=== PATIENT | female | born 1970 | race Caucasian/White ===

== ENCOUNTER → 2017-10-06 | Outpatient (REF) | payer OTHER | LOC: M LAB REF 17:34 | DX: D25.9 Leiomyoma of uterus, unspecified (principal) ==

== ENCOUNTER 2017-10-19 08:49 | Day surgery (SDC) | payer OTHER ==
[2017-10-19] MEDS ORDERED: LIDOCAINE 1% MDV 20ML VIAL SQ (09:15)
[2017-10-19] MEDS ORDERED: LR 1,000 ML IV (09:15)
[2017-10-19] MEDS ORDERED: LIDOCAINE 2% INJ 100 MG/5 ML SDV (FOR ANES.) As Ordered (09:26)
[2017-10-19] MEDS ORDERED: ROCURONIUM BROMIDE 50 MG/5 ML VIAL As Ordered ×2 (09:26→11:44)
[2017-10-19] MEDS ORDERED: fentaNYL 100 MCG/2 ML INJECTION (J3010) As Ordered ×2 (09:27→09:29)
[2017-10-19] MEDS ORDERED: MIDAZOLAM INJ 2 MG/2 ML VIAL (J2250) As Ordered (09:27)
[2017-10-19 09:30] LABS: MEAN CORPUSCULAR HEMOGLOBIN 21.7 pg (27.0-33.0); MEAN CORPUSCULAR VOLUME 74.9 fl (80.0-96.0); PLATELET COUNT, AUTOMATED 352 10^3/uL (150-450); RED BLOOD COUNT 4.14 10^6/uL (4.00-5.40); WHITE BLOOD COUNT 7.4 10^3/uL (4.0-10.0)
[2017-10-19 09:58] LABS: CONTROL LINE HCG INT CTR LINE PRESENT; HCG, SERUM QUALITATIVE NEGATIVE (NEGATIVE)
[2017-10-19] MEDS: SILVER NITRATE APPLICATOR As Ordered (10:23)
[2017-10-19] MEDS ORDERED: ceFAZolin 2 GM/D5W 50 ML IV BAG (J0690 PER 500MG) As Ordered (10:33)
[2017-10-19] MEDS ORDERED: dexameTHASONE 4 MG/ML 1ML VIAL (J1100) As Ordered (11:11)
[2017-10-19] MEDS ORDERED: HYDROmorphone HCL 2 MG/ML 1ML VIAL (J1170) As Ordered (11:18)
[2017-10-19] MEDS: METHYLENE BLUE 0.5% (5MG/ML) 10 ML AMP (PROVAYBLUE)(Q9968 PER 1MG) As Ordered (13:00)
[2017-10-19] MEDS: ceFAZolin 2 GM/D5W 50 ML IV BAG (J0690 PER 500MG) As Ordered (15:02)
[2017-10-19] MEDS ORDERED: ONDANSETRON 4MG/2ML VIAL (J2405) As Ordered (15:11)
[2017-10-19] MEDS ORDERED: KETOROLAC 60 MG/2 ML VIAL (J1885) As Ordered (15:11)
[2017-10-19] MEDS ORDERED: GLYCOPYRROLATE INJ 0.2 MG/ML 2 ML VIAL As Ordered (15:11)
[2017-10-19] MEDS: BUPIVACAINE HCL 0.25% 30 ML VIAL As Ordered (15:21)
[2017-10-19] MEDS ORDERED: PROMETHAZINE INJ 25 MG/ML VIAL (J2550) IV (16:00)
[2017-10-19] MEDS ORDERED: PERCOCET 5MG/325MG TAB PO ×3 (16:00→16:15)
[2017-10-19] MEDS ORDERED: ONDANSETRON 4MG/2ML VIAL (J2405) IV (16:15)
[2017-10-19] MEDS ORDERED: HYDROmorphone HCL 1 MG/ML SYRINGE (J1170) IV (16:15)
[2017-10-19] MEDS: LR 1,000 ML IV ×2 (16:15→17:39)
[2017-10-19] MEDS ORDERED: fentaNYL 100 MCG/2 ML INJECTION (J3010) IV (16:15)
[2017-10-19] MEDS: ONDANSETRON 4MG/2ML VIAL (J2405) IV (16:40)
[2017-10-19] MEDS: DOCUSATE SODIUM 100 MG CAP PO (21:58)
[2017-10-19] MEDS: KETOROLAC 30 MG/ML VIAL (J1885) IV (21:58)
[2017-10-20] MEDS: LR 1,000 ML IV
[2017-10-20] MEDS: KETOROLAC 30 MG/ML VIAL (J1885) IV ×3 (03:57→15:08)
[2017-10-20 06:29] LABS: BASO % 0.3 % (0.0-1.0); EOS # 0.1 10^3/uL (0.0-0.50); EOS % 0.6 % (0.0-3.0); HEMATOCRIT 25.3 % (36.0-47.0); HEMOGLOBIN 7.5 g/dl (12.0-15.5); IMMATURE GRANULOCYTE % 0.4 % (0-3.0); LYMPH # 2.8 10^3/uL (1.5-4.5); LYMPH % 20.3 % (24.0-44.0); MEAN CORPUSCULAR HEMOGLOBIN 21.7 pg (27.0-33.0); MEAN CORPUSCULAR HGB CONC 29.6 g/dl (32.0-36.5); MEAN CORPUSCULAR VOLUME 73.3 fl (80.0-96.0); MONO # 1.1 10^3/uL (0.0-0.8); MONO % 7.6 % (0.0-5.0); NEUTROPHILS # 9.8 10^3/uL (1.8-7.7); NEUTROPHILS % 70.8 % (36.0-66.0); PLATELET COUNT, AUTOMATED 282 10^3/uL (150-450); RED BLOOD COUNT 3.45 10^6/uL (4.00-5.40); RED CELL DISTRIBUTION WIDTH 16.7 % (11.5-14.5); WHITE BLOOD COUNT 13.8 10^3/uL (4.0-10.0)
[2017-10-20] MEDS: DOCUSATE SODIUM 100 MG CAP PO (09:37)
[2017-10-20] MEDS ORDERED: IBUPROFEN 800 MG TAB PO (23:00)
== END 2017-10-20 16:15 | disposition home or self-care (01) ==
LOC: M SDC 08:49 → M PED 17:30
DX: D25.9 Leiomyoma of uterus, unspecified (principal); F17.210 Nicotine dependence, cigarettes, uncomplicated; Z88.2 Allergy status to sulfonamides; Z79.899 Other long term (current) drug therapy
CPT/HCPCS: 58571